=== PATIENT | female | born 1995 | race African-American/Black ===

== ENCOUNTER 2021-08-10 11:55 | Emergency (ER) | payer BC ==
[~2021-08-10] VITALS: Ht 170.2 cm; Wt 127.0 kg
[2021-08-10] MEDS ORDERED: IBUPROFEN 800MG TABLET PO ONE (12:30)
[2021-08-10] MEDS ORDERED: HYDR-4001 MT (15:15)
[2021-08-10] MEDS ORDERED: IBUP-2030 MT (15:15)
[2021-08-10] MEDS ORDERED: HYDROCODONE/ACETAMINOPHEN 5/325MG TABLET PO ONE (15:30)
[2021-08-10 16:19] VITALS: BP 127/78
== END 2021-08-10 16:20 | disposition home or self-care (01) ==
LOC: ER 11:55
DX: S82.52XA Displaced fracture of medial malleolus of left tibia, initial encounter for closed fracture (principal); E11.9 Type 2 diabetes mellitus without complications; W01.0XXA Fall on same level from slipping, tripping and stumbling without subsequent striking against object, initial encounter; Y93.89 Activity, other specified; Y92.018 Other place in single-family (private) house as the place of occurrence of the external cause
CPT/HCPCS: 29515; 73610; 99283

== ENCOUNTER 2022-11-22 19:26 | Emergency (ER) | payer BC ==
[~2022-11-22] VITALS: Ht 170.2 cm; Wt 126.9 kg
[~2022-11-22 19:26] MED LIST: HYDR-4001 MT; IBUP-2030 MT
[2022-11-22 20:30] LABS: CLARITY URINE TURBID (CLEAR); COLOR URINE DARK YELLOW (YELLOW); KETONES URINE TRACE (NEGATIVE); LEUKOCYTE ESTERASE URINE 3+ (NEGATIVE); NITRITE URINE POSITIVE (NEGATIVE); OCCULT BLOOD URINE 3+ (NEGATIVE); PH URINE 5.5 (4.5-8.0); PROTEIN URINE 2+ (NEGATIVE)
[2022-11-22] MEDS ORDERED: NITR100C PO (20:37)
[2022-11-22 21:30] VITALS: BP 156/81
== END 2022-11-22 21:34 | disposition home or self-care (01) ==
LOC: ER 19:26
DX: N39.0 Urinary tract infection, site not specified (principal); R42 Dizziness and giddiness
CPT/HCPCS: 81003; 81025; 87186; 99283

== ENCOUNTER 2022-11-23 23:04 | Emergency (ER) | payer SELFPAY ==
[~2022-11-23] VITALS: Ht 170.2 cm; Wt 125.7 kg
[~2022-11-23 23:04] MED LIST changes: +NITR100C PO
[2022-11-23 23:12] VITALS: BP 158/86
== END 2022-11-24 03:30 | disposition left against medical advice (07) ==
LOC: ER 23:25
DX: R06.02 Shortness of breath (principal); E11.9 Type 2 diabetes mellitus without complications
CPT/HCPCS: 71045; 93005; 99283